=== PATIENT | female | born 1960 | race Caucasian/White ===

== ENCOUNTER 2016-10-11 13:16 | Emergency (ER) | payer OTHER ==
[2016-11-02] MEDS ORDERED: PROZAC40 MG PO (13:17)
[2016-11-02] MEDS ORDERED: PROTONIX40 MG PO (13:17)
[2016-11-02] MEDS ORDERED: NEURONTIN800 MG PO ×2 (13:17→13:24)
[2016-11-02] MEDS ORDERED: CLARITIN10 MG PO (13:18)
[2016-11-02] MEDS ORDERED: GEODON80 MG PO (13:18)
[2016-11-02] MEDS ORDERED: PHENERGAN25 M1 PO (13:18)
[2016-11-02] MEDS ORDERED: TRAZODONE HCL300 MG PO (13:19)
[2016-11-02] MEDS ORDERED: CYCLOBENZAPRINE10 MG PO (13:19)
[2016-11-02] MEDS ORDERED: FOLIC ACID1 MG PO (13:20)
[2016-11-02] MEDS ORDERED: VENTOLIN HFA8 GM IH (13:20)
[2016-11-02] MEDS ORDERED: PRAVACHOL40 MG PO (13:20)
[2016-11-02] MEDS ORDERED: ALBUTEROL2.5 MG/0.5 IH (13:21)
[2016-11-02] MEDS ORDERED: CYANOCOBAL1000 MCG/1 INJ (13:21)
[2016-11-02] MEDS ORDERED: ESTRACE42.5 GM VG (13:22)
[2016-11-02] MEDS ORDERED: DALIRESP500 MCG PO (13:22)
[2016-11-02] MEDS ORDERED: BUSPIRONE HCL15 MG PO (13:22)
[2016-11-02] MEDS ORDERED: PERCOCET 10-321 EACH PO (13:22)
[2016-11-02] MEDS ORDERED: ADVAIR HFA 115-28 GM IH (13:23)
[2016-11-02] MEDS ORDERED: B-1100 MG PO (13:23)
[2016-11-02] MEDS ORDERED: REQUIP0.5 MG PO (13:23)
[2016-11-02] MEDS ORDERED: ATIVAN0.5 MG PO (13:24)
[2016-11-02] MEDS ORDERED: LACTULOSE10 GM/15 M PO (13:24)
[2016-11-02] MEDS ORDERED: JANUVIA100 MG PO (13:24)
[2016-11-02] MEDS ORDERED: POLYETHYLENE GL17 GM PO (13:25)
[2016-11-02] MEDS ORDERED: DECLOMYCIN150 MG PO (13:25)
[2016-11-02] MEDS ORDERED: DAILY VITE1 EACH PO (13:25)
[2016-11-02] MEDS ORDERED: NICODERM CQ1 EACH TOP (13:26)
[2016-11-02] MEDS ORDERED: SPIRIVA18 MCG IH (13:26)
[2016-11-02] MEDS ORDERED: GLUCOPHAGE XR500 MG PO (13:30)
[2016-11-02] MEDS ORDERED: PREDNISONE10 MG PO (13:30)
[2016-11-02] MEDS ORDERED: XARELTO15 MG PO (13:31)
[2016-11-02] MEDS ORDERED: XARELTO20 MG PO (13:31)
== END 2016-10-11 17:31 | disposition critical access hospital (66) ==
LOC: ER 13:16
DX: J18.9 Pneumonia, unspecified organism (principal); F41.9 Anxiety disorder, unspecified; F32.9 Major depressive disorder, single episode, unspecified; E78.5 Hyperlipidemia, unspecified; F17.210 Nicotine dependence, cigarettes, uncomplicated; Z88.1 Allergy status to other antibiotic agents; Z79.899 Other long term (current) drug therapy
CPT/HCPCS: 36415; 87502; 96361; 96365

== ENCOUNTER 2016-10-11 13:16 | Inpatient (IN) | payer MEDICARE, OTHER ==
[2016-11-02] MEDS ORDERED: PROZAC40 MG PO (13:17)
[2016-11-02] MEDS ORDERED: PROTONIX40 MG PO (13:17)
[2016-11-02] MEDS ORDERED: NEURONTIN800 MG PO ×2 (13:17→13:24)
[2016-11-02] MEDS ORDERED: CLARITIN10 MG PO (13:18)
[2016-11-02] MEDS ORDERED: PHENERGAN25 M1 PO (13:18)
[2016-11-02] MEDS ORDERED: GEODON80 MG PO (13:18)
[2016-11-02] MEDS ORDERED: TRAZODONE HCL300 MG PO (13:19)
[2016-11-02] MEDS ORDERED: CYCLOBENZAPRINE10 MG PO (13:19)
[2016-11-02] MEDS ORDERED: FOLIC ACID1 MG PO (13:20)
[2016-11-02] MEDS ORDERED: VENTOLIN HFA8 GM IH (13:20)
[2016-11-02] MEDS ORDERED: PRAVACHOL40 MG PO (13:20)
[2016-11-02] MEDS ORDERED: ALBUTEROL2.5 MG/0.5 IH (13:21)
[2016-11-02] MEDS ORDERED: CYANOCOBAL1000 MCG/1 INJ (13:21)
[2016-11-02] MEDS ORDERED: DALIRESP500 MCG PO (13:22)
[2016-11-02] MEDS ORDERED: PERCOCET 10-321 EACH PO (13:22)
[2016-11-02] MEDS ORDERED: BUSPIRONE HCL15 MG PO (13:22)
[2016-11-02] MEDS ORDERED: ESTRACE42.5 GM VG (13:22)
[2016-11-02] MEDS ORDERED: ADVAIR HFA 115-28 GM IH (13:23)
[2016-11-02] MEDS ORDERED: B-1100 MG PO (13:23)
[2016-11-02] MEDS ORDERED: REQUIP0.5 MG PO (13:23)
[2016-11-02] MEDS ORDERED: ATIVAN0.5 MG PO (13:24)
[2016-11-02] MEDS ORDERED: JANUVIA100 MG PO (13:24)
[2016-11-02] MEDS ORDERED: LACTULOSE10 GM/15 M PO (13:24)
[2016-11-02] MEDS ORDERED: DECLOMYCIN150 MG PO (13:25)
[2016-11-02] MEDS ORDERED: POLYETHYLENE GL17 GM PO (13:25)
[2016-11-02] MEDS ORDERED: DAILY VITE1 EACH PO (13:25)
[2016-11-02] MEDS ORDERED: SPIRIVA18 MCG IH (13:26)
[2016-11-02] MEDS ORDERED: NICODERM CQ1 EACH TOP (13:26)
[2016-11-02] MEDS ORDERED: PREDNISONE10 MG PO (13:30)
[2016-11-02] MEDS ORDERED: GLUCOPHAGE XR500 MG PO (13:30)
[2016-11-02] MEDS ORDERED: XARELTO20 MG PO (13:31)
[2016-11-02] MEDS ORDERED: XARELTO15 MG PO (13:31)
== END 2016-10-14 16:05 | disposition home or self-care (01) | DRG 190 ==
LOC: ER 13:16 → MED 17:32 → ER 17:32 → MED 10-13 13:00
PROVIDERS: ADMIT Internal Medicine
PROC: 3E0234Z Introduction of Serum, Toxoid and Vaccine into Muscle, Percutaneous Approach (ICD-10-PCS; principal; 2016-10-14)
DX: J44.0 Chronic obstructive pulmonary disease with (acute) lower respiratory infection (principal); J18.9 Pneumonia, unspecified organism; F10.239 Alcohol dependence with withdrawal, unspecified; N17.9 Acute kidney failure, unspecified; J44.1 Chronic obstructive pulmonary disease with (acute) exacerbation; F17.210 Nicotine dependence, cigarettes, uncomplicated; F31.9 Bipolar disorder, unspecified; E11.9 Type 2 diabetes mellitus without complications; E86.0 Dehydration; B37.9 Candidiasis, unspecified; K59.00 Constipation, unspecified; R49.0 Dysphonia; M54.9 Dorsalgia, unspecified; D72.829 Elevated white blood cell count, unspecified; E78.5 Hyperlipidemia, unspecified; G25.81 Restless legs syndrome; Z99.81 Dependence on supplemental oxygen; G89.4 Chronic pain syndrome; F41.9 Anxiety disorder, unspecified; Z88.1 Allergy status to other antibiotic agents; Z80.6 Family history of leukemia; Z83.3 Family history of diabetes mellitus; Z84.89 Family history of other specified conditions; Z79.84 Long term (current) use of oral hypoglycemic drugs; Z79.899 Other long term (current) drug therapy; Z23 Encounter for immunization
CPT/HCPCS: 36415; 87502; 94664; G0009; J1650; J3420

== ENCOUNTER 2016-10-17 10:47 | Emergency (ER) | payer OTHER ==
[2016-10-18] MEDS ORDERED: PROTONIX40 MG PO (10:13)
[2016-10-18] MEDS ORDERED: BACLOFEN10 MG PO (10:13)
[2016-10-18] MEDS ORDERED: PROZAC40 MG PO (10:13)
[2016-10-18] MEDS ORDERED: NEURONTIN800 MG PO ×2 (10:13→10:23)
[2016-10-18] MEDS ORDERED: PHENERGAN25 M1 PO (10:14)
[2016-10-18] MEDS ORDERED: CLARITIN10 MG PO (10:16)
[2016-10-18] MEDS ORDERED: CYCLOBENZAPRINE10 MG PO (10:17)
[2016-10-18] MEDS ORDERED: TRAZODONE HCL300 MG PO (10:17)
[2016-10-18] MEDS ORDERED: PRAVACHOL40 MG PO (10:17)
[2016-10-18] MEDS ORDERED: GEODON80 MG PO (10:17)
[2016-10-18] MEDS ORDERED: VENTOLIN HFA8 GM IH (10:18)
[2016-10-18] MEDS ORDERED: FOLIC ACID1 MG PO (10:18)
[2016-10-18] MEDS ORDERED: CYANOCOBAL1000 MCG/1 INJ (10:20)
[2016-10-18] MEDS ORDERED: ALBUTEROL2.5 MG/0.5 NEB (10:20)
[2016-10-18] MEDS ORDERED: DALIRESP500 MCG PO (10:21)
[2016-10-18] MEDS ORDERED: BUSPIRONE HCL15 MG PO (10:21)
[2016-10-18] MEDS ORDERED: PERCOCET 10-321 EACH PO (10:21)
[2016-10-18] MEDS ORDERED: ADVAIR HFA 115-28 GM IH (10:22)
[2016-10-18] MEDS ORDERED: B-1100 MG PO (10:22)
[2016-10-18] MEDS ORDERED: ESTRACE42.5 GM VG (10:22)
[2016-10-18] MEDS ORDERED: REQUIP0.5 MG PO (10:22)
[2016-10-18] MEDS ORDERED: ATIVAN0.5 MG PO (10:23)
[2016-10-18] MEDS ORDERED: JANUVIA100 MG PO (10:23)
[2016-10-18] MEDS ORDERED: LACTULOSE10 GM/152 PO (10:24)
[2016-10-18] MEDS ORDERED: POLYETHYLENE GL17 GM PO (11:00)
[2016-10-18] MEDS ORDERED: DECLOMYCIN150 MG PO (11:01)
[2016-10-18] MEDS ORDERED: NICOTINE PATCH1 EAC4 TOP (11:01)
[2016-10-18] MEDS ORDERED: DAILY VITE1 EACH PO (11:01)
[2016-10-18] MEDS ORDERED: SPIRIVA18 MCG IH (11:02)
[2016-10-18] MEDS ORDERED: DIFLUCAN200 MG PO (11:03)
[2016-10-18] MEDS ORDERED: CEFDINIR300 MG PO (11:03)
[2016-10-18] MEDS ORDERED: PREDNISONE10 MG PO (11:04)
[2016-11-02] MEDS ORDERED: PROZAC40 MG PO (13:17)
[2016-11-02] MEDS ORDERED: NEURONTIN800 MG PO ×2 (13:17→13:24)
[2016-11-02] MEDS ORDERED: PROTONIX40 MG PO (13:17)
[2016-11-02] MEDS ORDERED: CLARITIN10 MG PO (13:18)
[2016-11-02] MEDS ORDERED: PHENERGAN25 M1 PO (13:18)
[2016-11-02] MEDS ORDERED: GEODON80 MG PO (13:18)
[2016-11-02] MEDS ORDERED: CYCLOBENZAPRINE10 MG PO (13:19)
[2016-11-02] MEDS ORDERED: TRAZODONE HCL300 MG PO (13:19)
[2016-11-02] MEDS ORDERED: FOLIC ACID1 MG PO (13:20)
[2016-11-02] MEDS ORDERED: VENTOLIN HFA8 GM IH (13:20)
[2016-11-02] MEDS ORDERED: PRAVACHOL40 MG PO (13:20)
[2016-11-02] MEDS ORDERED: CYANOCOBAL1000 MCG/1 INJ (13:21)
[2016-11-02] MEDS ORDERED: ALBUTEROL2.5 MG/0.5 IH (13:21)
[2016-11-02] MEDS ORDERED: ESTRACE42.5 GM VG (13:22)
[2016-11-02] MEDS ORDERED: DALIRESP500 MCG PO (13:22)
[2016-11-02] MEDS ORDERED: PERCOCET 10-321 EACH PO (13:22)
[2016-11-02] MEDS ORDERED: BUSPIRONE HCL15 MG PO (13:22)
[2016-11-02] MEDS ORDERED: REQUIP0.5 MG PO (13:23)
[2016-11-02] MEDS ORDERED: B-1100 MG PO (13:23)
[2016-11-02] MEDS ORDERED: ADVAIR HFA 115-28 GM IH (13:23)
[2016-11-02] MEDS ORDERED: LACTULOSE10 GM/15 M PO (13:24)
[2016-11-02] MEDS ORDERED: ATIVAN0.5 MG PO (13:24)
[2016-11-02] MEDS ORDERED: JANUVIA100 MG PO (13:24)
[2016-11-02] MEDS ORDERED: POLYETHYLENE GL17 GM PO (13:25)
[2016-11-02] MEDS ORDERED: DECLOMYCIN150 MG PO (13:25)
[2016-11-02] MEDS ORDERED: DAILY VITE1 EACH PO (13:25)
[2016-11-02] MEDS ORDERED: SPIRIVA18 MCG IH (13:26)
[2016-11-02] MEDS ORDERED: NICODERM CQ1 EACH TOP (13:26)
[2016-11-02] MEDS ORDERED: PREDNISONE10 MG PO (13:30)
[2016-11-02] MEDS ORDERED: GLUCOPHAGE XR500 MG PO (13:30)
[2016-11-02] MEDS ORDERED: XARELTO15 MG PO (13:31)
[2016-11-02] MEDS ORDERED: XARELTO20 MG PO (13:31)
== END 2016-10-17 12:38 | disposition critical access hospital (66) ==
LOC: ER 10:47
DX: J44.1 Chronic obstructive pulmonary disease with (acute) exacerbation (principal); J18.9 Pneumonia, unspecified organism; F31.9 Bipolar disorder, unspecified; E78.5 Hyperlipidemia, unspecified; F17.210 Nicotine dependence, cigarettes, uncomplicated; Z98.51 Tubal ligation status; Z79.899 Other long term (current) drug therapy; Z88.1 Allergy status to other antibiotic agents; Z99.81 Dependence on supplemental oxygen
CPT/HCPCS: 36415; 87502; 96361; 96365; 96375; J3370; Q9967

== ENCOUNTER 2016-10-17 10:47 | Inpatient (IN) | payer MEDICARE, OTHER ==
--- NOTE | 2016-10-18 09:30 | NUR ---
NOTIFIED ANGELIA TERAN RN THAT A PICC LINE IS NEEDED IN THIS PATIENT. STATED THAT SHE WAS IN [place] AND WOULD BE HERE IN A LITTLE BIT.
[2016-10-18] MEDS ORDERED: PROTONIX40 MG PO (10:13)
[2016-10-18] MEDS ORDERED: NEURONTIN800 MG PO ×2 (10:13→10:23)
[2016-10-18] MEDS ORDERED: BACLOFEN10 MG PO (10:13)
[2016-10-18] MEDS ORDERED: PROZAC40 MG PO (10:13)
[2016-10-18] MEDS ORDERED: PHENERGAN25 M1 PO (10:14)
[2016-10-18] MEDS ORDERED: CLARITIN10 MG PO (10:16)
[2016-10-18] MEDS ORDERED: CYCLOBENZAPRINE10 MG PO (10:17)
[2016-10-18] MEDS ORDERED: TRAZODONE HCL300 MG PO (10:17)
[2016-10-18] MEDS ORDERED: PRAVACHOL40 MG PO (10:17)
[2016-10-18] MEDS ORDERED: GEODON80 MG PO (10:17)
[2016-10-18] MEDS ORDERED: VENTOLIN HFA8 GM IH (10:18)
[2016-10-18] MEDS ORDERED: FOLIC ACID1 MG PO (10:18)
[2016-10-18] MEDS ORDERED: ALBUTEROL2.5 MG/0.5 NEB (10:20)
[2016-10-18] MEDS ORDERED: CYANOCOBAL1000 MCG/1 INJ (10:20)
[2016-10-18] MEDS ORDERED: BUSPIRONE HCL15 MG PO (10:21)
[2016-10-18] MEDS ORDERED: DALIRESP500 MCG PO (10:21)
[2016-10-18] MEDS ORDERED: PERCOCET 10-321 EACH PO (10:21)
[2016-10-18] MEDS ORDERED: REQUIP0.5 MG PO (10:22)
[2016-10-18] MEDS ORDERED: ESTRACE42.5 GM VG (10:22)
[2016-10-18] MEDS ORDERED: ADVAIR HFA 115-28 GM IH (10:22)
[2016-10-18] MEDS ORDERED: B-1100 MG PO (10:22)
[2016-10-18] MEDS ORDERED: ATIVAN0.5 MG PO (10:23)
[2016-10-18] MEDS ORDERED: JANUVIA100 MG PO (10:23)
[2016-10-18] MEDS ORDERED: LACTULOSE10 GM/152 PO (10:24)
[2016-10-18] MEDS ORDERED: POLYETHYLENE GL17 GM PO (11:00)
[2016-10-18] MEDS ORDERED: DAILY VITE1 EACH PO (11:01)
[2016-10-18] MEDS ORDERED: NICOTINE PATCH1 EAC4 TOP (11:01)
[2016-10-18] MEDS ORDERED: DECLOMYCIN150 MG PO (11:01)
[2016-10-18] MEDS ORDERED: SPIRIVA18 MCG IH (11:02)
[2016-10-18] MEDS ORDERED: CEFDINIR300 MG PO (11:03)
[2016-10-18] MEDS ORDERED: DIFLUCAN200 MG PO (11:03)
[2016-10-18] MEDS ORDERED: PREDNISONE10 MG PO (11:04)
--- NOTE | 2016-10-20 14:09 | NUR ---
1350: REPORT GIVEN TO BRIGHT MURRAY RN ON [employer].
--- NOTE | 2016-10-20 14:10 | NUR ---
1405: PT TRANSPORTED TO [facility] VIA WHEELCHAIR WITH 02. PT ALERT AND ORIENTED X3, VSS, AND NO DISTRESS NOTED OR VERBALIZED.
--- NOTE | 2016-10-20 16:52 | NUR ---
1350: REPORT RECIEVED FROM SHASHANK-SECURITIES SUPERVISOR 1415: PT TO [facility] ROOM 303 VIA WHEELCHAIR. AM IN AGREEMENT WITH PREVIOUS ASSESSMENT, PT STABLE AT THIS TIME, WILL CONTINUE TO MONITOR
--- NOTE | 2016-10-22 10:13 | NUR ---
0845 - PATIENT C/O ANXIETY. ATIVAN 0.5 MG IV ADMINISTERED.
--- NOTE | 2016-10-22 14:25 | NUR ---
1400 - PATIENT C/O ANXIETY. ATIVAN 0.5 MG IV ADMINISTERED.
--- NOTE | 2016-10-23 11:03 | NUR ---
0920 - PATIENT C/O ANXIETY. ATIVAN 0.5 MG IV ADMINISTERED.
--- NOTE | 2016-10-23 15:40 | NUR ---
1530 - PATIENT DISCHARGED HOME/MD ORDER. PICC LINE AND TELEMETRY REMOVED. APPTS. AND PRESCRIPTIONS GIVEN. OUT VIA WHEELCHAIR. HOME WITH VIA PRIVATE VEHICLE.
[2016-11-02] MEDS ORDERED: NEURONTIN800 MG PO ×2 (13:17→13:24)
[2016-11-02] MEDS ORDERED: PROZAC40 MG PO (13:17)
[2016-11-02] MEDS ORDERED: PROTONIX40 MG PO (13:17)
[2016-11-02] MEDS ORDERED: CLARITIN10 MG PO (13:18)
[2016-11-02] MEDS ORDERED: GEODON80 MG PO (13:18)
[2016-11-02] MEDS ORDERED: PHENERGAN25 M1 PO (13:18)
[2016-11-02] MEDS ORDERED: CYCLOBENZAPRINE10 MG PO (13:19)
[2016-11-02] MEDS ORDERED: TRAZODONE HCL300 MG PO (13:19)
[2016-11-02] MEDS ORDERED: FOLIC ACID1 MG PO (13:20)
[2016-11-02] MEDS ORDERED: PRAVACHOL40 MG PO (13:20)
[2016-11-02] MEDS ORDERED: VENTOLIN HFA8 GM IH (13:20)
[2016-11-02] MEDS ORDERED: CYANOCOBAL1000 MCG/1 INJ (13:21)
[2016-11-02] MEDS ORDERED: ALBUTEROL2.5 MG/0.5 IH (13:21)
[2016-11-02] MEDS ORDERED: PERCOCET 10-321 EACH PO (13:22)
[2016-11-02] MEDS ORDERED: DALIRESP500 MCG PO (13:22)
[2016-11-02] MEDS ORDERED: BUSPIRONE HCL15 MG PO (13:22)
[2016-11-02] MEDS ORDERED: ESTRACE42.5 GM VG (13:22)
[2016-11-02] MEDS ORDERED: ADVAIR HFA 115-28 GM IH (13:23)
[2016-11-02] MEDS ORDERED: B-1100 MG PO (13:23)
[2016-11-02] MEDS ORDERED: REQUIP0.5 MG PO (13:23)
[2016-11-02] MEDS ORDERED: JANUVIA100 MG PO (13:24)
[2016-11-02] MEDS ORDERED: ATIVAN0.5 MG PO (13:24)
[2016-11-02] MEDS ORDERED: LACTULOSE10 GM/15 M PO (13:24)
[2016-11-02] MEDS ORDERED: POLYETHYLENE GL17 GM PO (13:25)
[2016-11-02] MEDS ORDERED: DAILY VITE1 EACH PO (13:25)
[2016-11-02] MEDS ORDERED: DECLOMYCIN150 MG PO (13:25)
[2016-11-02] MEDS ORDERED: SPIRIVA18 MCG IH (13:26)
[2016-11-02] MEDS ORDERED: NICODERM CQ1 EACH TOP (13:26)
[2016-11-02] MEDS ORDERED: PREDNISONE10 MG PO (13:30)
[2016-11-02] MEDS ORDERED: GLUCOPHAGE XR500 MG PO (13:30)
[2016-11-02] MEDS ORDERED: XARELTO20 MG PO (13:31)
[2016-11-02] MEDS ORDERED: XARELTO15 MG PO (13:31)
== END 2016-10-23 15:30 | disposition home or self-care (01) | DRG 175 ==
LOC: ER 10:47 → ICU 12:39 → MED 12:39 → ICU 16:00 → MED 10-20 14:05
PROVIDERS: ADMIT Internal Medicine
PROC: 05HM33Z Insertion of Infusion Device into Right Internal Jugular Vein, Percutaneous Approach (ICD-10-PCS; principal; 2016-10-18)
DX: I26.99 Other pulmonary embolism without acute cor pulmonale (principal); J18.9 Pneumonia, unspecified organism; J96.21 Acute and chronic respiratory failure with hypoxia; J44.0 Chronic obstructive pulmonary disease with (acute) lower respiratory infection; J44.1 Chronic obstructive pulmonary disease with (acute) exacerbation; F10.239 Alcohol dependence with withdrawal, unspecified; G89.29 Other chronic pain; F41.9 Anxiety disorder, unspecified; F31.9 Bipolar disorder, unspecified; G25.81 Restless legs syndrome; E78.5 Hyperlipidemia, unspecified; Z86.718 Personal history of other venous thrombosis and embolism; K21.9 Gastro-esophageal reflux disease without esophagitis; Z79.84 Long term (current) use of oral hypoglycemic drugs; Z79.899 Other long term (current) drug therapy; F17.210 Nicotine dependence, cigarettes, uncomplicated; Z83.3 Family history of diabetes mellitus; Z82.5 Family history of asthma and other chronic lower respiratory diseases; B37.9 Candidiasis, unspecified; R53.1 Weakness; K59.00 Constipation, unspecified; Z99.81 Dependence on supplemental oxygen; B37.3 Candidiasis of vulva and vagina; T38.0X5A Adverse effect of glucocorticoids and synthetic analogues, initial encounter; E11.65 Type 2 diabetes mellitus with hyperglycemia
CPT/HCPCS: 36415; 81240; 87502; 93306; 94664; 97162-GP; 97165; C1751; J1650; J2060; J2550; J3370; Q9967

== ENCOUNTER 2016-10-30 19:42 | Emergency (ER) | payer OTHER ==
[~2016-10-30 19:42] MED LIST: ADVAIR HFA 115-28 GM IH; ALBUTEROL2.5 MG/0.5 NEB; ATIVAN0.5 MG PO; B-1100 MG PO; BACLOFEN10 MG PO; BUSPIRONE HCL15 MG PO; CEFDINIR300 MG PO; CLARITIN10 MG PO; CYANOCOBAL1000 MCG/1 INJ; CYCLOBENZAPRINE10 MG PO; DAILY VITE1 EACH PO; DALIRESP500 MCG PO; DECLOMYCIN150 MG PO; DIFLUCAN200 MG PO; ESTRACE42.5 GM VG; FOLIC ACID1 MG PO; GEODON80 MG PO; JANUVIA100 MG PO; LACTULOSE10 GM/152 PO; NEURONTIN800 MG PO; NICOTINE PATCH1 EAC4 TOP; PERCOCET 10-321 EACH PO; PHENERGAN25 M1 PO; POLYETHYLENE GL17 GM PO; PRAVACHOL40 MG PO; PREDNISONE10 MG PO; PROTONIX40 MG PO; PROZAC40 MG PO; REQUIP0.5 MG PO; SPIRIVA18 MCG IH; TRAZODONE HCL300 MG PO; VENTOLIN HFA8 GM IH
[2016-11-02] MEDS ORDERED: NEURONTIN800 MG PO ×2 (13:17→13:24)
[2016-11-02] MEDS ORDERED: PROTONIX40 MG PO (13:17)
[2016-11-02] MEDS ORDERED: PROZAC40 MG PO (13:17)
[2016-11-02] MEDS ORDERED: CLARITIN10 MG PO (13:18)
[2016-11-02] MEDS ORDERED: PHENERGAN25 M1 PO (13:18)
[2016-11-02] MEDS ORDERED: GEODON80 MG PO (13:18)
[2016-11-02] MEDS ORDERED: CYCLOBENZAPRINE10 MG PO (13:19)
[2016-11-02] MEDS ORDERED: TRAZODONE HCL300 MG PO (13:19)
[2016-11-02] MEDS ORDERED: FOLIC ACID1 MG PO (13:20)
[2016-11-02] MEDS ORDERED: PRAVACHOL40 MG PO (13:20)
[2016-11-02] MEDS ORDERED: VENTOLIN HFA8 GM IH (13:20)
[2016-11-02] MEDS ORDERED: CYANOCOBAL1000 MCG/1 INJ (13:21)
[2016-11-02] MEDS ORDERED: ALBUTEROL2.5 MG/0.5 IH (13:21)
[2016-11-02] MEDS ORDERED: DALIRESP500 MCG PO (13:22)
[2016-11-02] MEDS ORDERED: ESTRACE42.5 GM VG (13:22)
[2016-11-02] MEDS ORDERED: BUSPIRONE HCL15 MG PO (13:22)
[2016-11-02] MEDS ORDERED: PERCOCET 10-321 EACH PO (13:22)
[2016-11-02] MEDS ORDERED: B-1100 MG PO (13:23)
[2016-11-02] MEDS ORDERED: ADVAIR HFA 115-28 GM IH (13:23)
[2016-11-02] MEDS ORDERED: REQUIP0.5 MG PO (13:23)
[2016-11-02] MEDS ORDERED: JANUVIA100 MG PO (13:24)
[2016-11-02] MEDS ORDERED: LACTULOSE10 GM/15 M PO (13:24)
[2016-11-02] MEDS ORDERED: ATIVAN0.5 MG PO (13:24)
[2016-11-02] MEDS ORDERED: DECLOMYCIN150 MG PO (13:25)
[2016-11-02] MEDS ORDERED: DAILY VITE1 EACH PO (13:25)
[2016-11-02] MEDS ORDERED: POLYETHYLENE GL17 GM PO (13:25)
[2016-11-02] MEDS ORDERED: SPIRIVA18 MCG IH (13:26)
[2016-11-02] MEDS ORDERED: NICODERM CQ1 EACH TOP (13:26)
[2016-11-02] MEDS ORDERED: GLUCOPHAGE XR500 MG PO (13:30)
[2016-11-02] MEDS ORDERED: PREDNISONE10 MG PO (13:30)
[2016-11-02] MEDS ORDERED: XARELTO15 MG PO (13:31)
[2016-11-02] MEDS ORDERED: XARELTO20 MG PO (13:31)
== END 2016-10-30 21:33 | disposition home or self-care (01) ==
LOC: ER 19:42
DX: J20.9 Acute bronchitis, unspecified (principal); J44.9 Chronic obstructive pulmonary disease, unspecified; M54.9 Dorsalgia, unspecified; F31.9 Bipolar disorder, unspecified; E11.9 Type 2 diabetes mellitus without complications; F17.210 Nicotine dependence, cigarettes, uncomplicated; Z99.81 Dependence on supplemental oxygen; Z79.899 Other long term (current) drug therapy; Z88.1 Allergy status to other antibiotic agents; Z98.51 Tubal ligation status
CPT/HCPCS: 36415; 96365; J0696

== ENCOUNTER 2016-11-19 17:32 | Emergency (ER) | payer OTHER ==
[~2016-11-19 17:32] MED LIST changes: +ALBUTEROL2.5 MG/0.5 IH; +GLUCOPHAGE XR500 MG PO; +LACTULOSE10 GM/15 M PO; +NICODERM CQ1 EACH TOP; +XARELTO15 MG PO; +XARELTO20 MG PO
== END 2016-11-19 20:45 | disposition home or self-care (01) ==
LOC: ER 17:32
DX: S30.1XXA Contusion of abdominal wall, initial encounter (principal); K85.90 Acute pancreatitis without necrosis or infection, unspecified; N39.0 Urinary tract infection, site not specified; K21.9 Gastro-esophageal reflux disease without esophagitis; E11.9 Type 2 diabetes mellitus without complications; E78.5 Hyperlipidemia, unspecified; F31.9 Bipolar disorder, unspecified; Z98.51 Tubal ligation status; Z79.899 Other long term (current) drug therapy; Z88.1 Allergy status to other antibiotic agents; W01.198A Fall on same level from slipping, tripping and stumbling with subsequent striking against other object, initial encounter
CPT/HCPCS: 36415; Q9967

== ENCOUNTER 2016-12-18 11:42 | Emergency (ER) | payer OTHER | END 2016-12-18 15:53 | disposition critical access hospital (66) | LOC: ER 11:42 | DX: J44.1 Chronic obstructive pulmonary disease with (acute) exacerbation (principal); I50.9 Heart failure, unspecified; F41.9 Anxiety disorder, unspecified; F31.9 Bipolar disorder, unspecified; E11.9 Type 2 diabetes mellitus without complications; F17.210 Nicotine dependence, cigarettes, uncomplicated; Z98.51 Tubal ligation status; Z99.81 Dependence on supplemental oxygen; Z79.899 Other long term (current) drug therapy; Z88.1 Allergy status to other antibiotic agents | CPT/HCPCS: 36415; 51702; 80307; 96365; 96367; 96375; G0480; J1940 ==

== ENCOUNTER 2016-12-18 11:42 | Inpatient (IN) | payer MEDICARE, OTHER ==
[~2016-12-18] VITALS: Ht 167.6 cm; Wt 62.4 kg
--- NOTE | 2016-12-18 23:00 | NUR ---
2230 12/18/[address] SCAN WITHOUT ELECTRONICS TEACHER ORDERED. UNABLE TO TOLERATE PO CONTRAST.
--- NOTE | 2016-12-19 19:00 | NUR ---
GAVE REPORT TO NATALIIA DOOLEY RN AND ALL HER QUESTIONS WERE ANSWERED. PACKED ALL OF THE PATIENT'S BELONGINGS UP AND PREPARED HER TO BE MOVED TO ROOM 316.
--- NOTE | 2016-12-19 19:20 | NUR ---
PATIENT EXITED ICU VIA BED ACCOMPANIED BY 2 NURSING ASSISTANTS AND A RN IN NO ACUTE DISTRESS TO GO TO ROOM 316. PATIENT'S SIGNIFICANT OTHER HAD ALREADY BEEN INFORMED THAT SHE WAS GOING TO BE MOVED EARLIER. ALL OF THE PATIENT'S BELONGINGS WERE PACKED AND BEING TAKEN WITH HER TO HER NEW ROOM. PATIENT WAS VERY APPRECIATIVE OF THE CARE RECEIVED IN THE ICU.
--- NOTE | 2016-12-21 10:51 | NUR ---
0910 - PATIENT C/O ANXIETY. ATIVAN 1 MG PO ADMINISTERED.
--- NOTE | 2016-12-21 17:09 | NUR ---
1100 - PATIENT C/O NAUSEA. PHENERGAN 25 MG PO ADMINISTERED.
--- NOTE | 2016-12-21 18:22 | NUR ---
1800 - PATIENT C/O ANXIETY. ATIVAN 1 MG PO ADMINISTERED.
== END 2016-12-23 16:30 | DRG 190 ==
LOC: ER 11:42 → ICU 15:54 → MED 15:54 → ICU 15:54 → ER 15:54 → ICU 12-19 16:20 → MED 12-19 20:03
PROVIDERS: ADMIT Internal Medicine
DX: J44.1 Chronic obstructive pulmonary disease with (acute) exacerbation (principal); G93.41 Metabolic encephalopathy; K85.20 Alcohol induced acute pancreatitis without necrosis or infection; N39.0 Urinary tract infection, site not specified; T50.995A Adverse effect of other drugs, medicaments and biological substances, initial encounter; R27.0 Ataxia, unspecified; F31.9 Bipolar disorder, unspecified; Z86.718 Personal history of other venous thrombosis and embolism; Z79.01 Long term (current) use of anticoagulants; G89.4 Chronic pain syndrome; B96.20 Unspecified Escherichia coli [E. coli] as the cause of diseases classified elsewhere; Z16.23 Resistance to quinolones and fluoroquinolones; Z99.81 Dependence on supplemental oxygen; M54.9 Dorsalgia, unspecified; E11.9 Type 2 diabetes mellitus without complications; E78.5 Hyperlipidemia, unspecified; G25.81 Restless legs syndrome; K21.9 Gastro-esophageal reflux disease without esophagitis; Z98.51 Tubal ligation status; F10.10 Alcohol abuse, uncomplicated; Z79.84 Long term (current) use of oral hypoglycemic drugs; Z79.899 Other long term (current) drug therapy; Z88.1 Allergy status to other antibiotic agents; Z88.2 Allergy status to sulfonamides; F17.210 Nicotine dependence, cigarettes, uncomplicated; Z82.5 Family history of asthma and other chronic lower respiratory diseases; Z83.3 Family history of diabetes mellitus; K59.09 Other constipation
CPT/HCPCS: 36415; 70551; 80307; 97162-GP; 97166; G0480; J0696; J1940; J2060; J7030

== ENCOUNTER 2017-01-17 11:43 | Inpatient (IN) | payer MEDICARE, OTHER ==
[~2017-01-17] VITALS: Ht 167.6 cm; Wt 57.3 kg
== END 2017-01-20 15:20 | disposition home or self-care (01) | DRG 871 ==
LOC: ER 11:43 → MED 13:56
PROVIDERS: ADMIT Internal Medicine
PROC: 02HV33Z Insertion of Infusion Device into Superior Vena Cava, Percutaneous Approach (ICD-10-PCS; principal; 2017-01-20)
PROC: B548ZZA Ultrasonography of Superior Vena Cava, Guidance (ICD-10-PCS; 2017-01-20)
DX: A41.9 Sepsis, unspecified organism (principal); J18.9 Pneumonia, unspecified organism; N39.0 Urinary tract infection, site not specified; J44.0 Chronic obstructive pulmonary disease with (acute) lower respiratory infection; K86.1 Other chronic pancreatitis; J96.10 Chronic respiratory failure, unspecified whether with hypoxia or hypercapnia; Y95 Nosocomial condition; D64.9 Anemia, unspecified; E83.42 Hypomagnesemia; R79.89 Other specified abnormal findings of blood chemistry; B96.89 Other specified bacterial agents as the cause of diseases classified elsewhere; Z16.12 Extended spectrum beta lactamase (ESBL) resistance; Z99.81 Dependence on supplemental oxygen; Z86.718 Personal history of other venous thrombosis and embolism; Z79.01 Long term (current) use of anticoagulants; G89.29 Other chronic pain; M54.5 Low back pain; F31.9 Bipolar disorder, unspecified; E11.9 Type 2 diabetes mellitus without complications; E78.5 Hyperlipidemia, unspecified; G25.81 Restless legs syndrome; K21.9 Gastro-esophageal reflux disease without esophagitis; Z98.51 Tubal ligation status; Z79.899 Other long term (current) drug therapy; Z88.1 Allergy status to other antibiotic agents; Z88.2 Allergy status to sulfonamides; F17.210 Nicotine dependence, cigarettes, uncomplicated; Z82.5 Family history of asthma and other chronic lower respiratory diseases; Z83.3 Family history of diabetes mellitus; F10.21 Alcohol dependence, in remission
CPT/HCPCS: 36415; 87507; C1751; J0696; J1885; J2550; J3420; J7050

== ENCOUNTER 2017-01-17 11:43 | Emergency (ER) | payer OTHER | END 2017-01-17 13:55 | disposition critical access hospital (66) | LOC: ER 11:43 | DX: A41.9 Sepsis, unspecified organism (principal); J44.9 Chronic obstructive pulmonary disease, unspecified; N39.0 Urinary tract infection, site not specified; D72.829 Elevated white blood cell count, unspecified; E11.9 Type 2 diabetes mellitus without complications; Z79.899 Other long term (current) drug therapy; Z88.1 Allergy status to other antibiotic agents | CPT/HCPCS: 36415; 96361; 96365; 96375; J0696; J1885 ==